=== PATIENT | female | born 1975 ===

== ENCOUNTER 2024-04-07 06:06 | Inpatient (IN) | payer OTHER ==
[~2024-04-07] VITALS: Ht 165.1 cm; Wt 141.5 kg
[2024-04-07] MEDS ORDERED: Dexamethasone Sod Phos 10 MG/ML 1ML VIAL IV ONE (06:35)
[2024-04-07] MEDS ORDERED: Albuterol 2.5 MG/3 ML VIAL INH SCH (06:35)
[2024-04-07 06:45] LABS: BASOPHILS ABSOLUTE AUTO 0.02 K/mm3 (0.00-0.23); BASOPHILS PERCENT AUTO 0 % (0-2); EOSINOPHILS ABSOLUTE AUTO 0.19 K/mm3 (0.00-0.68); EOSINOPHILS PERCENT AUTO 2 % (0-6); Hematocrit 36.8 % (33.0-51.0); Hemoglobin 11.7 g/dL (11.5-16.0); IMMATURE GRAN ABSOLUTE AUTO 0.07 K/mm3 (0.00-0.10); IMMATURE GRAN PERCENT AUTO 1 % (0-1); LYMPHOCYTES ABSOLUTE AUTO 2.18 K/mm3 (0.84-5.20); LYMPHOCYTES PERCENT AUTO 22 % (21-46); MONOCYTES ABSOLUTE AUTO 0.85 K/mm3 (0.16-1.47); MONOCYTES PERCENT AUTO 8 % (4-13); Mean Corpuscular HGB 27.3 pg (26.0-34.0); Mean Corpuscular HGB Conc 31.8 g/dL (31.5-36.5); Mean Corpuscular Volume 86 fL (80-100); Mean Platelet Volume 11.1 fL (9.1-12.4); NEUTROPHILS ABSOLUTE AUTO 6.84 K/mm3 (1.96-9.15); NEUTROPHILS PERCENT AUTO 67 % (41-73); Platelet Count 257 K/mm3 (150-400); RDW Coefficient Variation 14.5 % (11.7-14.2); RDW Standard Deviation 45.4 fL (35.1-46.3); Red Blood Cell Count 4.28 M/mm3 (3.80-5.20); White Blood Cell Count 10.15 K/mm3 (4.00-11.30)
[2024-04-07 07:17] LABS: Albumin, Blood 3.2 g/dL (3.4-5.0); Albumin/Globulin Ratio 0.7 (0.8-1.8); Bilirubin, Total 0.7 mg/dL (0.1-1.0); Bun/Creatinine Ratio 14.1 (12.0-20.0); Calcium, Blood 8.4 mg/dL (8.5-10.1); Creatinine, Blood 0.78 mg/dL (0.40-1.00); Globulin, Blood 4.4 g/dL (2.2-4.0); Potassium, Blood 3.6 mmol/L (3.5-5.5); Total Protein, Blood 7.6 g/dL (6.4-8.2)
[2024-04-07 08:29] LABS: Influenza A, PCR NEGATIVE (NEGATIVE); Influenza B, PCR NEGATIVE (NEGATIVE); Resp Syncytial Virus, PCR NEGATIVE (NEGATIVE); SARS-Cov-2 (COVID-19) PCR, MMC NEGATIVE (NEGATIVE)
[2024-04-07] MEDS ORDERED: CefTRIAXone Sodium 1,000 MG in NS 100 ML IV ONE (08:40)
[2024-04-07] MEDS ORDERED: Azithromycin 500 MG in NS 250 ML IV ONE (08:45)
[2024-04-07] MEDS ORDERED: FLU VACC TS2024-25(6MOS UP)/PF 45 MCG/0.5 ML SYRINGE IM PRN (10:45)
[2024-04-07] MEDS ORDERED: Albuterol 2.5 MG/3 ML VIAL INH PRN (10:50)
[2024-04-07] MEDS ORDERED: NS 1,000 ML IV SCH (14:30)
[2024-04-07] MEDS ORDERED: MethylPREDNISolone Sod Succ 125 MG Vial IV SCH (16:00)
[2024-04-07] MEDS ORDERED: Ipratropium/Albuterol SulF 2.5-0.5MG/3 ML Amp INH SCH (16:35)
--- NOTE | 2024-04-07 21:30 | NUR ---
ADMISSION NOTE PT ARRIVED TO 328 AT 2130. PT WAS AOX4, CALM AND COOPERATIVE, WITH 2LNC ON. PT WAS INDPENDENT TO BATHROOM, BUT WAS STILL REMINDED TO USE CALL LIGHT IF IN NEED OF TOILETING. EXPLAINED TO PT CALL LIGHT. PT VERBALIZED UNDERSTANDING. BED LOCKED IN LOWEST POSITION. THIS RN TO ASSUME CARE.
[2024-04-07 21:36] VITALS: BP 136/80
[2024-04-08 03:46] VITALS: BP 116/66
--- NOTE | 2024-04-08 05:27 | NUR ---
SHIFT SUMMARY PT ARRIVED ON UNIT AT 2130 LAST NIGHT. PT WAS AOX4, CALM AND COOPERATIVE. SHE HAD 2LNC ON SATURATING AT ABOVE 90%. PT HOWEVER HAD SOB ON EXERTION. PT WAS INDEPENDENT AMBULATING TO BATHROOM OVERNIGHT. PT HAS HAD CPAP W/ O2 BLEED IN FOR ALMOST HALF OF THE NIGHT. SHE WAS TOLERATING CPAP. PT HAD NO COMPLAINTS OVERNIGHT. NO ACUTE EVENTS OVERNIGHT.
[2024-04-08 07:38] VITALS: BP 152/87
[2024-04-08] MEDS ORDERED: CefTRIAXone Sodium 1,000 MG in NS 100 ML IV SCH (09:00)
[2024-04-08] MEDS ORDERED: Azithromycin 500 MG in NS 250 ML IV SCH (09:00)
[2024-04-08] MEDS ORDERED: Enoxaparin 40 MG/0.4 ML SYR SC SCH (09:00)
[2024-04-08 10:27] LABS: Adenovirus Not Detected (NOT DETECT); Bordetella pertussis Not Detected (NOT DETECT); Chlamydophila pneumoniae Not Detected (NOT DETECT); Coronavirus 229E Not Detected (NOT DETECT); Coronavirus HKU1 Not Detected (NOT DETECT); Coronavirus NL63 Not Detected (NOT DETECT); Coronavirus OC43 Not Detected (NOT DETECT); Human Metapneumovirus Not Detected (NOT DETECT); Human Rhinovirus/Enterovirus Not Detected (NOT DETECT); Influenza A/2009-H1 Not Detected (NOT DETECT); Influenza A/H1 Not Detected (NOT DETECT); Influenza A/H3 Not Detected (NOT DETECT); Influenza B Not Detected (NOT DETECT); Mycoplasma pneumoniae Not Detected (NOT DETECT); Parainfluenza Virus 1 Not Detected (NOT DETECT); Parainfluenza Virus 2 Not Detected (NOT DETECT); Parainfluenza Virus 3 Not Detected (NOT DETECT); Parainfluenza Virus 4 Not Detected (NOT DETECT); Respiratory Syncytial Virus Not Detected (NOT DETECT); SARS-Cov-2 (COVID-19), BioFire Not Detected (NOT DETECT)
[2024-04-08 15:51] VITALS: BP 128/72
--- NOTE | 2024-04-08 17:39 | NUR ---
PATIENT A/OX4, UP INDEPENDENTLY IN ROOM. VSS, MAINTAINING STS >90% ON 1LO2. DYSPNEA WITH EXERTION. BREATHING TREATMENTS PER RT. PATIENT TO HAVE HOME O2 EVAL TOMORROW BEFORE DISCHARGE. NO NEW CONCERNS THIS SHIFT.
[2024-04-08 20:39] VITALS: BP 148/83
[2024-04-08] MEDS ORDERED: MethylPREDNISolone Sod Succ 125 MG Vial IV SCH (21:00)
--- NOTE | 2024-04-09 04:05 | NUR ---
SHIFT SUMMARY ADMITTED FOR RESPIRATORY FAILURE/PNEUMONIA. FULL CODE. PLAN IS FOR STEROIDS, RT TX'S, AND A HOME O2 EVAL. ON REGULAR DIET. SHE IS NOW ON 1 LPM O2. INDEPENDENT IN ROOM. PCR PANEL WAS NEGATIVE. SHE IS USING HER HOME CPAP W/2 LPM BLEED IN @ HS. SHE IS A&O X4. SHE IS HOPEFUL FOR DC HOME TODAY.
[2024-04-09 04:35] VITALS: BP 137/78
[2024-04-09 07:36] VITALS: BP 164/71
[2024-04-09] MEDS ORDERED: ALBU2.5V5 INH (14:44)
[2024-04-09] MEDS ORDERED: BUDESONIDE-FO10.2 G3 INH (14:45)
[2024-04-09] MEDS ORDERED: DELTASONE20 MG PO (14:46)
--- NOTE | 2024-04-09 15:45 | NUR ---
PATIENT DC'D TO HOME. DC INSTRUCTIONS AND EDUCATION DISCUSSED WITH PATIENT AND COPY PROVIDED. PATIENT DENIES ANY FURTHER QUESTIONS OR CONCERNS.
== END 2024-04-09 15:36 | disposition home or self-care (01) | DRG 193 ==
LOC: ER 06:06 → ERHOLD 06:07 → MEDS 06:07 → ERHOLD 06:07 → MEDS 21:24
PROVIDERS: Emergency Medicine; Family Medicine; ADMIT Family Medicine
DX: J18.9 Pneumonia, unspecified organism (principal); J96.01 Acute respiratory failure with hypoxia; J45.901 Unspecified asthma with (acute) exacerbation; Z68.43 Body mass index [BMI] 50.0-59.9, adult; E66.9 Obesity, unspecified; Z88.0 Allergy status to penicillin; Z91.013 Allergy to seafood; Z98.51 Tubal ligation status; Z90.49 Acquired absence of other specified parts of digestive tract; Z90.79 Acquired absence of other genital organ(s); Z71.3 Dietary counseling and surveillance
CPT/HCPCS: 0202U; 0241U; 36415; 71045; 80053; 83605; 84145; 85025; 93005; 93010; 94640; 94644; 94664; 94761; 94762; 96365; 96366; 96367; 96372; 96375; 96376; 99285-25; G0378; J0456; J0696; J1100; J1650; J2919; J7030; J7050